=== PATIENT | female | born 1980 | race Caucasian/White ===

== ENCOUNTER 2021-07-03 14:34 | Outpatient (REF) | payer MEDICAID, SELFPAY | END 2021-07-03 14:35 | disposition home or self-care (01) | LOC: HO.HMGCLDS 14:34 | PROVIDERS: Visit Provider Internal Medicine | DX: Z20.822 Contact with and (suspected) exposure to COVID-19 (principal) | CPT/HCPCS: C9803; U0003; U0005 ==